=== PATIENT | female | born 1965 | race Caucasian/White ===

== ENCOUNTER 2024-06-13 08:07 | Outpatient (CLI) | payer BC, SELFPAY ==
--- NOTE | ~2024-06-13 | MR_ITS ---
EXAMINATION: MR knee LT wo con DATE: 06/13/2024 09:14 INDICATION: Anterior left knee pain. Left knee instability. TECHNIQUE: Magnetic resonance imaging (MRI) of the left knee was performed without intravenous contra st. Sequences included axial PD-weighted FS FSE, coronal PD-weighted FSE and PD-weighted FS FSE, sagi ttal PD-weighted FSE, and sagittal T2-weighted FS FSE. COMPARISON: None. FINDINGS: Medial compartment: There is an undersurface horizontal tear of posterior horn of the meniscus. There is cartilage surfac e irregularity of tibial condyle and femoral condyle. There are tiny osteophytes. Lateral compartment: There is a complex tear of anterior horn, body, and posterior horn of lateral meniscus. There is shal low partial-thickness cartilage loss of femoral condyle. There is deep partial-thickness cartilage lo ss of tibial condyle posteriorly. Osteophytes are noted. Patellofemoral compartment: There is full-thickness cartilage loss of patellar medial facet with moderate subchondral edema-like marrow signal intensity. There is deep partial-thickness cartilage loss of patellar median ridge and lateral facet. There is shallow partial-thickness cartilage loss of trochlea. Ligaments and tendons: The anterior and posterior cruciate ligament are normal. Medial collateral ligament is normal. There are changes of prior sprain of fibular collateral ligament characterized by thickening and increased signal intensity proximally. There is mild patellar tendinopathy. Fluid: There is a small knee joint effusion. There is a small Jamil's cyst. There is a 2.1 x 1.9 x 1.4 cm mu ltiloculated ganglion cyst adjacent to origin of lateral head of gastrocnemius. There is a partial te ndon tear of origin of lateral head of gastrocnemius. IMPRESSION: 1. Severe chondrosis of patellofemoral compartment, moderate chondrosis of lateral compartment, and m ild chondrosis of medial compartment. 2. Tears of medial and lateral menisci. 3. Small knee joint effusion. Reviewed, dictated and finalized at location A. IMPRESSION: 1. Severe chondrosis of patellofemoral compartment, moderate chondrosis of late ral compartment, and mild chondrosis of medial compartment. 2. Tears of medial and lateral menisci. 3. Small knee joint effusion.
== END 2024-06-13 08:08 | disposition home or self-care (01) ==
LOC: MICIMG 08:08
PROVIDERS: PCP Orthopaedic Surgery; Visit Provider Orthopaedic Surgery
DX: M94.262 Chondromalacia, left knee (principal); S83.282A Other tear of lateral meniscus, current injury, left knee, initial encounter; S83.242A Other tear of medial meniscus, current injury, left knee, initial encounter; M25.462 Effusion, left knee; X58.XXXA Exposure to other specified factors, initial encounter; M25.362 Other instability, left knee
CPT/HCPCS: 73721